=== PATIENT | female | born 1940 | race Caucasian/White ===

== ENCOUNTER 2024-03-28 09:34 | Day surgery (SDC) | payer OTHER ==
[~2024-03-28] VITALS: Ht 157.5 cm; Wt 43.1 kg
[~2024-03-28 09:34] MED LIST: ALBU108A5 IN; ALEN70TA74 PO; CLOP75TA70 PO; DOXA1TAB42 PO; FURO20TA3 PO; GABA800T97 PO; METO-158 PO; POM PO; VERI2.5T PO
[2024-03-28] MEDS: fentaNYL CITRATE 100 MCG/2 ML VL IV ONE (10:15)
[2024-03-28] MEDS: LIDOCAINE VISCOUS 2% 15ML UD PO ONE (10:15)
[2024-03-28] MEDS: diphenhdrAMINE HCL 50 MG/1 ML VL IV ONE (10:15)
[2024-03-28] MEDS: MIDAZOLAM HCL 2MG/2ML 2ml VIAL (1mg/ml) IV ONE (10:15)
[2024-03-28] MEDS ORDERED: MIDAZOLAM HCL 2MG/2ML 2ml VIAL (1mg/ml) IV ONE (10:30)
[2024-03-28] MEDS ORDERED: fentaNYL CITRATE 100 MCG/2 ML VL IV ONE (10:30)
[2024-03-28] MEDS ORDERED: LIDOCAINE VISCOUS 2% 15ML UD PO ONE (10:30)
[2024-03-28] MEDS ORDERED: fentaNYL CITRATE 100 MCG/2 ML VL ONE (10:39)
[2024-03-28] MEDS ORDERED: MIDAZOLAM HCL 2MG/2ML 2ml VIAL (1mg/ml) ONE (10:40)
[2024-03-28 10:54] VITALS: BP 179/77; PULSE 82; RESP 22; O2SAT 98
[2024-03-28 10:58] VITALS: BP 158/72; PULSE 77; RESP 12; O2SAT 97
--- NOTE | 2024-03-28 11:11 | DVHOP2 ---
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 The patient was brought to the cardiac cardiac cath lab technologist in n.p.o. state. the patient was given 15 ml of oral viscous lidocaine. the patient was placed in a left lateral decubitus position with bite block in mouth. NExt conscious sedation was administered per cardiac cath lab technologist protocol with _1_ mg of versed and __25 _ mcg of fentanyl. Next a RACHEL probe was advanced to the mid esophagus with ease and multiple planar images obtained. At the completion of the procedure , probe was removed and there were no immediate complications. FINDINGS: Left Ventricle: Normal LV size and function, LVEF estimated at 55% moderate LVH Right Ventricle: NOrmal RV size and function Left atrium: moderate enlarged Right atrium: mild enlarged Left atrial appendage: no thrombus noted, Aortic valve: trileaflet valve, heavy calcium, no AI, moderate with some restriction noted Mitral Valve: structurally normal, mild mitral regurg, mild mitral stenosis Tricuspid Valve: mild tricuspid regurgitaiton, no TS Pulmonic Valve: strucutrally normal, no severe PIor PS Interatrial septum: negative color flow for R to L shunt Ascending aorta: no severe plaquing CARINE GRAY MD Mar 28, 2024 11:11
[2024-03-28 11:14] VITALS: BP 157/73; PULSE 74; RESP 20; O2SAT 98
[2024-03-28 11:29] VITALS: BP 167/79; PULSE 77; RESP 19; O2SAT 100
[2024-03-28 11:58] VITALS: BP 159/74; PULSE 72; RESP 12; O2SAT 98
[2024-03-28 12:14] VITALS: BP 162/81; PULSE 75; RESP 18; O2SAT 98
== END 2024-03-28 12:30 | disposition home or self-care (01) ==
LOC: CATH 09:34
PROVIDERS: ATTEND Internal Medicine
DX: I08.3 Combined rheumatic disorders of mitral, aortic and tricuspid valves (principal); I50.9 Heart failure, unspecified; F17.210 Nicotine dependence, cigarettes, uncomplicated; J44.9 Chronic obstructive pulmonary disease, unspecified; Z79.01 Long term (current) use of anticoagulants; Z79.899 Other long term (current) drug therapy
CPT/HCPCS: 93312; 93325; J2250; J3010; 99152